=== PATIENT | female | born 1990 | race Two or more races ===

== ENCOUNTER 2016-09-12 12:51 | Observation (INO) | payer MEDICAID ==
[~2016-09-12] VITALS: Ht 160 cm; Wt 72.1 kg
[~2016-09-12 12:51] MED LIST: PRENATALS
[2016-09-12 13:56] LABS: Albumin 3.9 g/dL (3.4-5.0); BUN/Creatinine Ratio 10.9; Calcium 9.1 mg/dL (8.5-10.1); Potassium 4.2 mmol/L (3.5-5.1)
[2016-09-12 13:59] LABS: Bilirubin, Total 0.3 mg/dL (0.2-1.0); Total Protein 7.7 g/dL (6.4-8.2)
[2016-09-12 14:14] LABS: Basophils # (auto) 0 uL; Basophils % (auto) 0.3 % (0.0-2.0); Eosinophils # (auto) 0 uL; Eosinophils % (auto) 0.3 % (0.0-7.0); Hematocrit 40.8 % (36.0-46.0); Hemoglobin 13.9 g/dL (12.2-16.2); Lymphocytes # (auto) 1.8 uL; Lymphocytes % (auto) 18.8 % (10.0-50.0); Mean Corpuscular Hgb Conc. 34.1 g/dL (32.0-36.0); Mean Corpuscular Volume 91.1 fL (80.0-100.0); Monocytes # (auto) 0.4 uL; Monocytes % (auto) 4.7 % (0.0-12.0); Neutrophils # (auto) 7.2 uL; Neutrophils % (auto) 75.9 % (37.0-80.0); Platelet Count (auto) 337 10^3/uL (140-450); White Blood Cell 9.6 10^3/uL (4.4-10.8)
[2016-09-12 15:13] LABS: Urine Bilirubin Negative (Negative); Urine Blood Negative /uL (Negative); Urine Color Yellow (Yellow); Urine Glucose Normal (Normal); Urine Mucus FEW (None Seen); Urine Nitrite Negative (Negative); Urine RBC 46 /hpf (0 - 4); Urine Squamous Epithelial Cell FEW /hpf (<5); Urine Urobilinogen Normal (Negative)
[2016-09-12 15:18] LABS: Urine Ketone 1+ (Negative)
[2016-09-12] MEDS ORDERED: SODIUM CHLORIDE 0.9% 1,000 ML IV ONE (21:15)
[2016-09-12] MEDS ORDERED: ACETAMINOPHEN 325 MG TAB PO ONE (23:45)
[2016-09-13 00:55] VITALS: BP 126/67
== END 2016-09-13 01:03 | disposition home or self-care (01) | DRG 563 ==
LOC: ER 12:57 → TELE 21:03 → ER 09-13 01:03
PROVIDERS: ADMIT Emergency Medicine; ATTEND Emergency Medicine
DX: O20.0 Threatened abortion (principal); O46.91 Antepartum hemorrhage, unspecified, first trimester; Z3A.09 9 weeks gestation of pregnancy
CPT/HCPCS: 36415; 76801; 80053; 81001; 84702; 85025; 86901; 96360; 99285; G0378